=== PATIENT | male | born 1935 | race Caucasian/White ===

== ENCOUNTER 2020-09-16 20:29 | Emergency (ER) | payer MEDICARE, BC ==
[~2020-09-16] VITALS: Ht 180.3 cm; Wt 87.3 kg
[~2020-09-16 20:29] MED LIST: ASPIR-LOW81 MG PO; BACTRIM 400 MG-1 TAB PO; FOLIC ACID1 MG PO; MVI; NIACIN TIME RE500 MG PO
[2020-09-16 21:00] LABS: BASO # 0.1 (0.0-0.2); BASO % 1.1 % (0.0-2.0); EOS # 0.1 (0.0-0.7); EOS % 1.7 % (0-4.0); GRAN # 5.3 (1.4-6.5); GRAN % 65.8 % (42.2-75.2); HEMATOCRIT 45.7 % (42.0-52.0); HEMOGLOBIN 15.5 g/dl (13.5-18.0); LYMPH % 24.6 % (20.0-51.0); MEAN CELL VOLUME 95 fl (80.0-100.0); MEAN CORPUSCULAR HEMOGLOBIN 32 pg (27.0-31.0); MEAN CORPUSCULAR HGB CONC 34 g/dl (33.0-37.0); MEAN PLATELET VOLUME 10.2 fl (7.4-10.4); MONO # 0.5 (0.1-0.6); MONO % 6.2 % (1.7-9.3); PLATELET COUNT 177 K/mm3 (130-400); RED BLOOD COUNT 4.82 M/mm3 (4.20-5.60); REDCELL DISTRIBUTION WIDTH-CV 11.9 % (11.5-14.5)
[2020-09-16 22:41] LABS: ALBUMIN 4.5 gm/dL (3.5-5.0); BILIRUBIN,TOTAL 0.7 mg/dL (0.0-1.0); CALCIUM 8.9 mg/dL (8.4-10.2); CREATININE, serum 0.82 (0.66-1.25); POTASSIUM 4.4 mmol/L (3.4-5.0); TOTAL PROTEIN 7.7 gm/dL (6.4-8.2)
[2020-09-17 01:14] VITALS: BP 137/83; PULSE 98; TEMP 97.6
[2020-09-18] MEDS ORDERED: PRAVACHOL 20MG20 MG PO (21:18)
[2020-09-18] MEDS ORDERED: VASOTEC 5MG5 MG/TAB PO (21:18)
[2020-09-18] MEDS ORDERED: BACTRIM DS 8001 TAB PO (21:18)
[2020-09-21] MEDS ORDERED: FERROUS SU325 MG/TAB PO (09:04)
[2020-09-21] MEDS ORDERED: MULTIPLE VITAMI1 TA5 PO (09:06)
== END 2020-09-17 01:14 | disposition home or self-care (01) ==
LOC: COL.ER 20:29
PROVIDERS: Emergency Medicine; Nurse Practitioner Primary Care
DX: K62.5 Hemorrhage of anus and rectum (principal); I71.02 Dissection of abdominal aorta; Z79.82 Long term (current) use of aspirin
CPT/HCPCS: Q9967